=== PATIENT | female | born 2005 | race Caucasian/White ===

== ENCOUNTER 2024-10-03 00:21 | Emergency (ER) | payer SELFPAY ==
[~2024-10-03] VITALS: Ht 160 cm; Wt 73.0 kg
[2024-10-03 00:29] VITALS: O2SAT 98
[2024-10-03] MEDS: LORAZEPAM 1MG TABLET PO ONE (01:51)
[2024-10-03 02:46] LABS: CREATININE 1.1 mg/dL (0.6-1.0); UREA NITROGEN BLOOD 15 mg/dL (9-23)
[2024-10-03 02:47] LABS: ETHANOL BLOOD < 10 mg/dL (<10)
[2024-10-03 03:01] LABS: BASOPHILS % 0.5 % (0.0-2.0); EOSINOPHILS % 0.4 % (0.0-5.0); HEMATOCRIT. 40.8 % (36.0-48.0); HEMOGLOBIN. 13.4 g/dL (12.0-16.0); LYMPHOCYTES % 16.9 % (20.0-50.0); MEAN PLATELET VOLUME 9.8 fl (7.4-10.4); MONOCYTES % 5.9 % (2.0-8.0); NEUTROPHILS % 76.3 % (40.0-76.0); PLATELET 193 x1000/uL (130-400); RED BLOOD CELL COUNT 4.87 mill/uL (4.2-5.4); RED CELL DISTRIBUTION WIDTH 15.2 % (11.6-14.6)
[2024-10-03 05:03] VITALS: BP 108/58; PULSE 93; RESP 20; TEMP 36.9; O2SAT 98
== END 2024-10-03 05:21 | disposition home or self-care (01) ==
LOC: ER 00:21
DX: F41.9 Anxiety disorder, unspecified (principal); R06.4 Hyperventilation; F12.90 Cannabis use, unspecified, uncomplicated; R07.9 Chest pain, unspecified
CPT/HCPCS: 36415; 71045; 80048; 80320; 85025; 93005; 99285; G0480